=== PATIENT | female | born 1955 | race Caucasian/White ===

== ENCOUNTER 2023-12-20 11:52 | Outpatient (CLI) | payer MEDICARE, SELFPAY ==
--- NOTE | ~2023-12-20 | XR_ITS ---
EXAMINATION: XR hip LT 2V w AP pelvis INDICATION: Left hip pain TECHNIQUE: AP view the pelvis and two views of the left hip are obtained. COMPARISON: None available FINDINGS: There are changes of right hip arthroplasty. There is moderate osteoarthritis of the left h ip. There is no fracture. A lesion of the left proximal femur with smooth sclerotic margin is noted, likely benign. IMPRESSION: 1. Moderate osteoarthritis of the left hip. Reviewed, dictated and finalized at location F.
== END 2023-12-20 11:53 | disposition home or self-care (01) ==
LOC: ANHIMG 11:59
PROVIDERS: PCP Physician Assistant; Visit Provider Orthopaedic Surgery
DX: M16.12 Unilateral primary osteoarthritis, left hip (principal)
CPT/HCPCS: 73502

== ENCOUNTER 2025-05-11 13:58 | Outpatient (CLI) | payer MEDICARE, SELFPAY ==
--- NOTE | ~2025-05-11 | XR_ITS ---
XR hip LT 2V w AP pelvis 05/11/2025 14:26 Indication: Osteoarthritis of the left hip Procedure: AP pelvis and 2 views left hip Comparison: 12/20/2023 Findings: There is moderate osteoarthritis of the left without significant change from prior examinat ion. There is remodeling of the acetabulum. There is a right femoral bipolar hemiarthroplasty. Pelvic rings intact. Sacral foramen are symmetric. There is lower lumbar spondylosis partially visualized. Stable subtle sclerotic lesion aspect of the left femur, likely benign. Impression: 1: Moderate osteoarthritis left hip. Reviewed, dictated and finalized at location A. Impression: 1: Moderate osteoarthritis left hip.
--- OUTSIDE RECORDS SUMMARY | 2025-05-11 14:00 | XMS_ITS | Encounter Summary ---
Author Organization [facility] Address [address] [place] [address] Phone Care Team Providers Care Collection Clerk Name Role Phone Kaitlynn Morgan Primary Care Provider + Yonas Kendall MD Unavailable [phone] Encounter Details Date Type Department Care Team (Late st Contact Info) Description 04/11/2025 Results Follow-Up [facility] - General Surgery - [place] [address] [address] Yonas Kendall MD [address] [address] PATHOLOGY SURGICAL Social History Tobacco Use Types Packs/Day Years Used Date Smoking Tobacco: Never Smokeless Tobacco: Never Alcohol Use Standard Drinks/Week Comments No 0 (1 standard drink = 0.6 oz pur e alcohol) [facility] Utilities Answer Date Recorded In the past 12 months has e electric, gas, oil, or water company threatened to shut off services in your home? No 03/16/2024 Social Connection and Isolation Panel Answer Date Recorded In a typical week, how many times do you talk on the phone with family, friends, or neighbors? Three times a week 03/16/2024 How often do you get togethe r with friends or relatives? Twice a week 03/16/2024 How often do you attend chur ch or yazidism services? More than 4 times per year 03/16/2024 Do you belong to any clubs o r organizations such as yazidi groups, unions, fraternal or athletic groups, or school groups? Yes 03/16/2024 How often do you attend meet ings of the clubs or organizations you belong to? 1 to 4 times per year 03/16/2024 Are you , , di vorced, , never , or living with a partner? 03/16/2024 Overall Financial Resource Strain (CARDIA) Answe r Date Recorded How hard is it for you to pa y for the very basics like food, housing, medical care, and heating? Not very hard 03/16/2024 PHQ-2 Answer Date Recorded Total Score - Questions 1-9 0 10/28 [facility] - Occupational Stress Questionnaire Answer Date Recorded Do you feel stress - tense, restless, nervous, or anxious, or unable to sleep at night because your mind is troubled all the time - these days? Only a little 03/16/2024 Exercise Vital Sign Answer Date Recorde d On average, how many days pe r week do you engage in moderate to strenuous exercise (like a brisk walk)? 3 days 03/16/2024 On average, how many minutes do you engage in exercise at this level? 60 min 03/16/2024 Hunger Vital Sign Answer Date Recorded Within the past 12 months, y ou worried that your food would run out before you got the money to buy more. Never true 03/16/20 24 Within the past 12 months, t he food you bought just didn't last and you didn't have money to get more. Never true 03/16/2024 PRAPARE - Transportation Answer Date Re corded In the past 12 months, has l ack of transportation kept you from medical appointments or from getting medications? No 02/26 In the past 12 months, has l ack of transportation kept you from meetings, work, or from getting things needed for daily living? No 03/16/2024 Housing Stability Vital Sign Answer Neri e Recorded In the last 12 months, was t here a time when you were not able to pay the mortgage or rent on time? No 09/14/2023 In the last 12 months, how many places have you lived? 1 09/14/2023 In the last 12 months, was t here a time when you did not have a steady place to sleep or slept in a custodial (including now)? No 09/14/2023 Housing Stability Vital Sign Answer Neri e Recorded In the last 12 months, was t here a time when you were not able to pay the mortgage or rent on time? No 03/16/2024 Number of Times Moved in the Last Year Not on fi le 03/16/2024 At any time in the past 12 m [facility], were you homeless or living in a custodial (including now)? No 03/16/2024 AUDIT-C Answer Date Recorded Q1: How often do you have a drink containing alcohol? Never 04/09/2025 Q2: How many drinks containi ng alcohol do you have on a typical day when you are drinking? Patient does not drink Q3: How often do you have si x or more drinks on one occasion? 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 on file documented as of this encounter Plan of Treatment Not on file documented as of this encounter Visit Diagnoses Not on filedocumented in this encounter Additional Health Concerns Assessment Noted Time PHQ-9 Depression Total Score: 0 11/06/19 25 9:25 AM INCIDENT HANDLER documented as of this encounter Care Teams Collection Clerk Relationship Specialty Start Date End Date Kaitlynn Morgan PAC [address] [place] [address] PCP - General Physician Quality Assurance Coordinator 12/01/17 Yonas Kendall MD [id number] [phone] Consulting Physician General Surgery 07/10/22 documented as of this encounter
--- OUTSIDE RECORDS SUMMARY | 2025-05-11 14:00 | XMS_ITS | Encounter Summary ---
Author Organization [facility] Address [address] [place] [address] Phone Care Team Providers Care Aircraft Structural Repair Mechanic Name Role Phone Kaitlynn Morgan Primary Care Provider + Yonas Kendall MD Unavailable [phone] Reason for Visit * Reason Comments Medication Refill Encounter Details Date Type Department Care Team (Late st Contact Info) Description 03/01/2024 Refill [facility] [address] [place] [address] Kaitlynn Morgan PAC [address] [place] [address] Medication Refill Social History Tobacco Use Types Packs/Day Years Used Date Smoking Tobacco: Never Smokeless Tobacco: Never Alcohol Use Standard Drinks/Week Comments No 0 (1 standard drink = 0.6 oz pur e alcohol) [facility] Utilities Answer Date Recorded In the past 12 months has e electric, gas, oil, or water company threatened to shut off services in your home? No 09/14/2023 Social Connection and Isolation Panel Answer Date Recorded In a typical week, how many times do you talk on the phone with family, friends, or neighbors? Once a week 09/14/2023 How often do you get togethe r with friends or relatives? Once a week 09/14/2023 How often do you attend chur or sikh services? More than 4 times per year 09/14/2023 Do you belong to any clubs o r organizations such as hinduism groups, unions, fraternal or athletic groups, or school groups? Yes 09/14/2023 How often do you attend meet ings of the clubs or organizations you belong to? More than 4 times per year 09/14/2023 Are you , , di vorced, , never , or living with a partner? 09/14/2023 AUDIT-C Answer Date Recorded Q1: How often do you have a drink containing alcohol? Never 09/14/2023 Q2: How many drinks containi ng alcohol do you have on a typical day when you are drinking? Patient does not drink Q3: How often do you have si x or more drinks on one occasion? Never 09/14/2023 Overall Financial Resource Strain (CARDIA) Answe r Date Recorded How hard is it for you to pa y for the very basics like food, housing, medical care, and heating? Not hard at all 09/14/2023 PHQ-2 Answer Date Recorded Total Score - Questions 1-9 0 04/0 02/2022 [facility]ational Stress Questionnaire Answer Date Recorded Do you feel stress - tense, restless, nervous, or anxious, or unable to sleep at night because your mind is troubled all the time - these days? Only a little 09/14/2023 Exercise Vital Sign Answer Date Recorde d On average, how many days pe r week do you engage in moderate to strenuous exercise (like a brisk walk)? 3 days 09/14/2023 On average, how many minutes do you engage in exercise at this level? 60 min 09/14/2023 Hunger Vital Sign Answer Date Recorded Within the past 12 months, y ou worried that your food would run out before you got the money to buy more. Never true 09/14/20 23 Within the past 12 months, t he food you bought just didn't last and you didn't have money to get more. Never true 09/14/2023 PRAPARE - Transportation Answer Date Re corded In the past 12 months, has l ack of transportation kept you from medical appointments or from getting medications? No 08/27 In the past 12 months, has l ack of transportation kept you from meetings, work, or from getting things needed for daily living? No 09/14/2023 Housing Stability Vital Sign Answer [...] place to sleep or slept in a care home (including now)? 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 Requested Prescriptions Pending Prescriptions Disp Refills famotidine (PEPCID) 20 MG Tablet [Pharmacy Med Name: FAMOTIDINE 20 MG TABLET] 180 Tablet 1 Sig: TAKE 1 TABLET BY MOUTH TWICE A DAY H2 Antagonists Protocol Passed - 03/01/2024 12:29 AM Passed - Visit with relevant provider in past 12 months or upcoming 90 days Recent Visits Date Type Provider Dept 09/14/23 Office Visit Kaitlynn Morgan PAC [facility] 03/04/23 Office Visit Kaitlynn Morgan PAC [facility] Showing recent visits within past 365 days and meeting all other requirements Future Appointments Date Type Provider Dept 03/16/24 Appointment Kaitlynn Morgan PAC [facility] Showing future appointments within next 90 days and meeting all other requirements documented in this encounter Plan of Treatment Not on file documented as of this encounter Visit Diagnoses Not on filedocumented in this encounter Additional Health Concerns Assessment Noted Time PHQ-9 Depression Total Score: 0 11/26/19 21 8:36 AM ALLIANCE DIRECTOR documented as of this encounter Care Teams Aircraft Structural Repair Mechanic Relationship Specialty Start Date End Date Kaitlynn Morgan PAC [address] [place] [address] PCP - General Physician Drop Count Associate 12/01/17 Yonas Kendall MD #[address] [place] [address] [phone] Consulting Physician General Surgery 07/10/22 documented as of this encounter
--- OUTSIDE RECORDS SUMMARY | 2025-05-11 14:00 | XMS_ITS | Encounter Summary ---
Author Organization [facility] Address [address] [place] [address] Phone Care Team Providers Care Medical Billing Instructor Name Role Phone Kaitlynn Morgan Primary Care Provider + Yonas Kendall MD Unavailable Reason for Visit * Reason Comments Medication Refill Encounter Details Date Type Department Care Team (Late st Contact Info) Description 11/25/2021 Refill [facility] - Family Medicine [facility] [address] [place] [address] Kaitlynn Morgan, PAC [address] [place] [address] Medication Refill Social History Tobacco Use Types Packs/Day Years Used Date Smoking Tobacco: Never Smokeless Tobacco: Never Alcohol Use Standard Drinks/Week Comments No 0 (1 standard drink = 0.6 oz pur e alcohol) PHQ-2 Answer Date Recorded Total Score - Questions 1-9 0 03/09/2020 Comments No Sex and Gender Information Value Date Recorded Sex Assigned at Female 09/28/2023 1:43 PM DIE GRINDER Legal Sex Female 9:47 PM CDT Gender Identity Female 09/28/2023 1:43 PM DIE GRINDER Sexual Orientation Straight 09/28/2023 1: 43 PM DIE GRINDER 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 Requested Prescriptions Pending Prescriptions Disp Refills lisinopril (PRINIVIL, ZESTRIL) 20 MG Tablet [Pharmacy Med Name: LISINOPRIL 20 MG TABLET] 90 Tablet 1 Sig: TAKE 1 TABLET BY MOUTH EVERY DAY KERLINE Inhibitors Protocol Failed - 11/25/2021 12:19 AM Failed - Serum potassium on record in past 12 months POTASSIUM Date Value Ref Range Status 05/21/2020 4.5 3.5 - 5.1 mmol/L Final Failed - GFR on record in past 12 months GFR, EST. NONAFRICAN Date Value Ref Range Status 05/21/2020 >60 >=60 Final Passed - Blood pressure on record in past 12 months Clinician-entered: BP Readings from Last 3 Encounters: 09/03/21 142/71 07/02/21 128/78 06/11/21 180/86 Patient-entered: No data recorded Passed - Visit with relevant provider in past 12 months or upcoming 90 days Recent Visits Date Type Provider Dept 07/02/21 Office Visit Kaitlynn Morgan PAC [facility] 06/11/21 Office Visit Kaitlynn Morgan PAC [facility] 05/29/21 Office Visit Kaitlynn Morgan, PAC [facility] 03/25/21 Office Visit Kaitlynn Morgan, PAC [facility] 11/25/20 Office Visit Kaitlynn Morgan PAC [facility] Showing recent visits within past 365 days and meeting all other requirements Future Appointments Date Type Provider Dept 12/31/21 Appointment Kaitlynn Morgan PAC [facility] Showing future appointments within next 90 days and meeting all other requirements GRINDER documented in this encounter Plan of Treatment Not on file documented as of this encounter Visit Diagnoses Not on filedocumented in this encounter Additional Health Concerns Assessment Noted Time PHQ-9 Depression Total Score: 0 11/26/19 21 8:36 AM DIE GRINDER documented as of this encounter Care Teams Medical Billing Instructor Relationship Specialty Start Date End Date Kaitlynn Morgan PAC [address] [place] [address] PCP - General Physician Park Services Specialist 12/01/17 Yonas Kendall MD [address] [phone] Consulting Physician General Surgery 07/10/22 documented as of this encounter
--- OUTSIDE RECORDS SUMMARY | 2025-05-11 14:00 | XMS_ITS | Clinical Summary ---
Author Organization [facility] Address [address] [facility] [address] [place] [address] Phone Care Team Providers Care Automotive Quality Manager Name Role Phone Kaitlynn Morgan Primary Care Provider + Yonas Kendall MD Unavailable Allergies Active Allergy Reactions Criticality Noted Date Comments Sulfa Antibiotics Hives,Rash Medications Calcium Carb-Cholecalci ferol (CALCIUM 600 + D PO) Take 1 Tab by mouth daily. Active Multiple Vitamins-Minera ls (MULTIVITAMIN PO) Take 1 Tab by mouth daily. Active Cholecalciferol (VITAMIN D3) 1000 UNIT Tablet Take 1 Tab by mouth daily. Active BIOTIN PO Take 3,000 mcg by mouth daily. Active cycloSPORINE (RESTASIS) 0.05 % Emulsion Place 1 Drop in affected eye(s) 2 times daily. Active Specialty Vitamins Products (VITAMINS FOR HAIR PO) Take 1 Tab by mouth daily. Active Probiotic Product (MONTEJO COLON HEALTH PO) Take by mouth daily. Active Semaglutide, 2 MG/DOSE, (Ozempic, 2 MG/DOSE,) 8 MG/3ML Solution Pen-injector 2 mg by Subcutaneous route every 7 days. 9 mL 3 3 Active famotidine (PEPCID) 20 MG Tablet TAKE 1 TABLET BY MOUTH TWICE A DAY 180 Tablet 1 4 Active atorvastatin (LIPITOR) 10 MG Tablet TAKE 1 TABLET BY MOUTH EVERY DAY 90 Tablet 2 5 Active lisinopril (PRINIVIL, ZESTRIL) 10 MG TabletIndicatio ns:Hypertension , unspecified type Take 1 Tablet by mouth daily. 90 Tablet 3 5 Active Active Problems Problem Noted Date Diagnosed Date Screen for colon cancer 06/23/2021 Iron deficiency 02/21/2021 Other abnormality of red blood cells 02/20/2021 Low back pain without sciatica 12/01/2017 Dyslipidemia 12/01/2017 Leukopenia Overview (08/27/2015): Transient leukopenia. Most recent CBC shows that WBC has recovered to normal. Normal iron panel, B12, folate, negative HIV and hepatitis B/C Encounters Date Type Department Care Team Description 04/17/2025 Telephone [facility] General Surgery - [place] [address] [facility] [address] [place] [address] Yonas Kendall MD 04/11/2025 Results Follow-Up [facility] General Surgery - [place] [address] [place] [address] Yonas Kendall MD PATHOLOGY SURGICAL 04/09/2025 1:30 PM CDT Office Visit [facility] General Surgery - [place] [address] [facility] [address] [place] [address] Kaitlynn Morgan PAC Sanz, Alejandro Federico, MD Soft tissue mass (Primary Dx) Discharge Disposition: Discharged to home or Selfcare 04/09/2025 Travel 03/16/2025 2:30 PM CDT Office Visit [facility] Family Medicine [facility] [address] [facility] [place] [address] Kaitlynn Morgan PAC Hypertension, unspecified type (Primary Dx); Orthostatic hypotension; Soft tissue mass Discharge Disposition: Discharged to home or Selfcare 03/16/2025 Travel from Last 3 Months Immunizations Immunization Administration Dates Next Due Covid-19, Mrna, Lnp-s, Pf, 3 0 Mcg/0.3 Ml Dose (Freshmilk NetTV) 11/20/2020,10/30/2020 Influenza Vaccine greater than 3 yrs 05/13/2020, 06/27/2018 Influenza Vaccine, Quadrivalent, PF 06/28/2017,0 05/27/2016,07/08/2015 Influenza Vaccine,unspecifie d Formulation 06/16/2023 Influenza, High-dose, Quadrivalent 05/24/2022, Influenza, Quadrivalent, Adjuvanted 06/16/2023 Influenza, Seasonal, Injecta ble, Undefined 06/27/2018,07/17/2014,06/24/2013,2011 Influenza, high-dose, trivalent, PF 07/05/2024,0 05/13/2020,06/21/2019 PUR FLU 3+ YRS PRES FREE QUAD IM 05/27/2016 Pneumococcal Vaccine - 13 Valent 12/08/2018 Pneumococcal Vaccine Adult - 23 Valent 06/13/2020 RSV, Recombinant, Protein Gordon bunit Rsvpref, Adjuvant Recon (Arexvy) 07/01/2023 TD VACCINE 05/02/2013 TDAP Vaccine 12/12/2024,11/26/2014 Zoster Vaccine Recombinant 04/10/2019,02/09/2019 Family History Medical History Relation Name Comments No Known Problems Brother 1 Cancer Brother 2 Vivek Prostate cancer Other-comment Brother 2 Vivek kidney stones No Known Problems Brother 4 Diabetes Brother 5 Poli Belénjuliusbelinda Cancer Brother 6 Vivek Belénjuliuslexbriana Diabetes Brother 6 Vivek Belénjuliuslexbriana Hypertension Father Sami Mckeon Other-comment Father Sami Mckeon SEPSIS Stroke Father Sami Mckeon Stroke Half-Brother 1 Cancer Maternal Aunt Kindra Ibanez Other-comment Mother MVA Cancer Paternal Aunt Tamie Mckeon Stroke Sister 1 Cancer Sister 2 Colon cancer Arthritis Sister 3 Other-comment Sister 3 aortic stenosi s Cancer Sister 4 Butch Witt Rheumatoid Arthritis Sister 4 Butch Witt Rheumatoid Arthritis Sister 5 Candy Her Relation Name Status Comments Brother 1 Alive Brother 2 Vivek Alive Brother 3 Poli Alive Brother 4 Alive Brother 5 Poli Mckeon Alive Brother 6 Vivek Mckeon Alive Father Sami Mckeon Alive Half-Brother 1 Half-Brother 2 Alive Maternal Aunt Kindra Ibanez Alive Mother Paternal Aunt Tamie Mckeon Alive Sister 1 Alive Sister 2 Alive Sister 3 Alive Sister 4 Butch Witt Alive Sister 5 Candy Her Alive Social History Tobacco Use Types Packs/Day Years Used Date Smoking Tobacco: Never Smokeless Tobacco: Never Tobacco Cessation:Counseling Given: Not Answered Alcohol Use Standard Drinks/Week Comments No 0 (1 standard drink = 0.6 oz pur e alcohol) [facility] Utilities Answer Date Recorded In the past [...] often do you attend chur ch or jew services? More than 4 times per year 03/16/2024 Do you belong to any clubs o r organizations such as holiness groups, unions, fraternal or athletic groups, or [...] Total Score - Questions 1-9 0 10/28 [facility] of Occupat ional Health - Occupational Stress Questionnaire Answer Date [...] place to sleep or slept in a alf (including now)? No 09/14/2023 Housing Stability Vital Sign Answer Neri e Recorded In the last 12 months, was t here a time when you were not able to pay the mortgage or rent on time? No 03/16/2024 Number of Times Moved in the Last Year Not on fi le 03/16/2024 At any time in the past 12 m [facility], were you homeless or living in a alf (including now)? No 03/16/2024 AUDIT-C Answer Date [...] Sex Assigned at Female 09/28/2023 1:43 PM [employer]ELOPER [employer] Legal Sex Female 9:47 PM CDT Gender Identity Female 09/28/2023 1:43 PM [employer]ELOPER [employer] Sexual Orientation Straight 09/28/2023 1: 43 PM [employer] Occupation Industry Job Start Date Job End Date retired teacher Not on file Not on file Not on file Last Filed Vital Signs Vital Sign Reading Time Taken Comments Blood Pressure 138/74 04/09/2025 1:27 PM CDT Pulse 75 04/09/2025 1:27 PM CDT Temperature 36.2 C (97.2 F) 04/09/2025 1:27 PM CDT Respiratory Rate 16 03/16/2025 2:00 PM CDT Oxygen Saturation 97% 04/09/2025 1:27 PM CDT Inhaled Oxygen Concentration - - Weight 73.5 kg (162 lb) 04/09/2025 1:27 PM CDT Height 160 cm (5' 3) 04/09/2025 1:27 PM CDT Body Mass Index 28.7 04/09/2025 1:27 PM CDT Plan of Treatment Health Maintenance Due Date Last Done Comments Cologkathryn 1998 Immunochemical Fecal Occult Blood 1998 SARS-COV-2 Immunization ( season) 2025 07/05/2024, 07/01/2023, 06/25/2022, Additional history exists Influenza Immunization (#1) 05/28/202505/2024, 06/16/2023, 06/16/2023, Additional history exists Mammogram 10/05/2025 10/05/2024, 05/2025, 08/17/2023, Additional history exists Colonoscopy 09/03/2026 09/03/2021, 06/22/2016 Colorectal Cancer Screening 09/03/2026 DEXA Bone Density 12/14/2026 12/14/2022, 12/13/2018 Td Immunization Every 10 Years (Adults With 1 Tdap) 12/12/2034 12/12/2024, 11/26/2014, 05/02/2013 Zoster Immunization Completed 04/17/2019, 04/10/2019, 02/09/2019 Pneumococcal Immunization (50+ years) Completed 06/13/2020, 12/08/2018 Pneumococcal Immunization Combined Discontinued 06/13/2020, 12/08/2018 Hepatitis C Virus (HCV) Screening Completed 03/05/2023 Respiratory Syncytial Virus (RSV) Immunization (Adult) Completed 07/01/2023 Hepatitis B Immunization Aged Out No longer eligible based on patient's age to complete this topic Human Papillomavirus (HPV) Immunization Aged Out No longer eligible based on patient's age to complete this topic Meningococcal Immunization (ACWY) Aged Out No longer eligible based on patient's age to complete this topic Rotavirus Immunization Aged Out No lo nger eligible based on patient's age to complete this topic Procedures Procedure Name Priority Date/Time Associated Diagnosis Comments PATHOLOGY SURGICAL Routine 04/09/2025 1: 57 PM CDT Soft tissue mass EXC SKIN BENIG 1.1-2CM REMAINDR BODY Routine 04/09/2025 1:30 PM CDT Soft tissue mass MAMMOGRAM BILATERAL GENERIC 10/05/2024 12:00 AM DEVELOPER [employer] HEPATITIS C ANTIBODY Routine 03/05/2023 9:21 AM CDT Need for hepatitis C screening test TJ BONE DENSITOMETRY AXIAL SKELETON Routine 12/14/2022 2:20 PM CDT Post-menopausal from Last 3 Months or Most Recently Relevant to Health Maintenance Results * PATHOLOGY SURGICAL (04/09/2025 1:57 PM CDT) Case Report Surgical Pathology Report Case: [id number] Authorizing Provider: Yonas Kendall, Collected: 04/09/2025 01:57 PM Ordering Location: [facility] - Received: 04/09/2025 01:57 PM General Surgery [facility] Pathologist: Madison Perez MD PhD Specimen: Skin, soft tissue mass, neck 04/11/2025 9:23 AM CDT [facility] FINAL DIAGNOSIS Soft tissue, neck, mass, excision: - Benign epidermoid cyst 04/11/2025 9:23 AM CDT [facility] at 0922 CDT Pre-Operative Diagnosis Soft tissue mass, neck 04/11/2025 9:23 AM CDT [facility] Gross Description A. soft tissue mass, neck The specimen presents in 1 formalin container for gross and microscopic examination labeled with the patient's name, Wendy Sanders. The specimen is designated as soft tissue mass neck excision and consists of a barber-pink skin ellipse measuring 1.7 x 1.3 x 1.0 cm. The surgical margin is inked black. Serial sectioning of the specimen reveals an barber-white firm ovoid nodule measuring 0.8 cm in greatest diameter. The specimen is entirely submitted in cassette A1. Total time of formalin fixation: 31 hours and 54 minutes. 04/11/2025 9:23 AM CDT [facility] Microscopic Description Microscopic examination was performed which supports the final diagnosis. All control tissues stained appropriately. 04/11/2025 9:23 AM CDT [facility] Other SPECIMEN FROM SKIN / Unknown Non-Phlebotomy Collection / Unknown 04/09/2025 1:57 PM CDT 04/09/2025 1:57 PM CDT us Yonas Kendall MD PATHOLOGY/CYTOLOGY OR DERABLES Final Result [facility] [address] [place] [address] * EXC SKIN BENIG 1.1-2CM REMAINDR BODY (04/09/2025 1:30 PM CDT) Narrative Yonas Kendall MD - 04/09/2025 1:30 PM CDT Yonas Kendall MD 04/09/2025 1:58 PM Procedure Excisional biopsy skin lesion, posterior neck mass Anesthesia Local, mixture 0.25% bupivacaine and 1% lidocaine 10 cc total Risks, benefits and alternatives of the procedure were discussed with the patient The area of interest was prepped and draped in a sterile fashion Local anesthetic was infiltrated around the skin lesion Using knife, an incision was done through the skin down to the level of the subcutaneous tissue with at least 2 mm margin of healthy skin The rest of the dissection was completed sharply using knife and scissors The specimen was removed and was taken to pathology for analysis The specimen measure 2 cm in length and 1 cm in width The wound was reapproximated with interrupted 4 Monocryl suture Steri-Strips and Tegaderm applied Blood loss 2 cc My office will communicate with the patient regarding pathology results The patient will follow up with me as needed By: Yonas Kendall MD; 04/09/2025, 1:54 PM CDT us Yonas Kendall MD PROCEDURE/MINOR SURGI RAJEEV ORDERABLES Final Result * MAMMOGRAM BILATERAL GENERIC (10/05/2024 12:00 AM DEVELOPER EVANGELIST) 10/05/2024 us Provider Scan IMG MAMMO ORDERABLES Final Resul t SCAN * HEPATITIS C ANTIBODY (03/05/2023 9:21 AM CDT) hepatitis C antibody 0.05 <1 S/[facility] [id number] B 03/05/2023 10:44 PM CDT [facility] Comment: Signal/Cutoff ratio < 0.79 is Nondetected Signal/Cutoff ratio 0.80-0.99 is Grayzone Signal/Cutoff ratio > 0.99 is Detected Supplemental assays are recommended if signal/cutoff ratio is >/=1.00. Signal/cutoff ratio result >/= 5.00 is 97% predictive of positivity for recombinant immunoblot assay (RIBA) and will be reported to the [place] Department of Public Health as required. Blood Venipuncture / Unknown 03/05/2023 9:21 AM CDT 03/05/2023 9:53 AM CDT us Kaitlynn Morgan PAC CHEMISTRY ORDERABLES Fin al Result [facility] [address] [place] [address], [place] * TJ BONE DENSITOMETRY AXIAL SKELETON (12/14/2022 2:20 PM CDT) Anatomical Region Laterality Modality BODY N/A Computed Radiogr aphy 12/14/2022 3:01 PM CDT Impressions 12/14/2022 3:04 PM CDT IMPRESSION: Normal bone density. REFERENCE: Bone mineral density: Normal (T-score above or = -1.0) Low bone mass (T-score between -1.0 and -2.5) replaces the previously used term osteopenia Osteoporosis (T-score = or below -2.5) Medical evaluation for secondary causes of low bone mineral density may be appropriate. FRAX is a World Health Organization validated fracture risk assessment tool that calculates a person's 10 year probability of a major osteoporosis related fracture and hip fracture. According to the National Osteoporosis Foundation guidelines, postmenopausal women and men age 50 or older with low bone mass and a 10 year probability of a major osteoporosis related fracture = or greater than 20% or a 10 year probability of a hip fracture = or greater than 3% should be considered for treatment. For further information, including treatment recommendations, please refer to the 2013 ISCD Official Positions (http://www.iscd.org) and the NOF's Clinician's Guide to Prevention and Treatment of Osteoporosis (http://www.nof.org/professionals/clinical-guidelines) Narrative 12/14/2022 3:04 PM CDT EXAM DESCRIPTION: TJ BONE DENSITOMETRY AXIAL SKELETON REASON FOR STUDY: 67 y/o year old F with given history of screening. Pharmacy Order Entry Technician/Model: [employer] (S/N [id number]) CLINICAL INFORMATION: Current height: 5 foot 2 inches Maximum height: 5 foot 3 inches Weight: 186 pounds Risk factors: None COMPARISON: 12/13/2018, 12/02/2013 FINDINGS: AP LUMBAR SPINE L1-L4: Total BMD is 1.138 g/cm2 T-score is -0.5 Most recent prior BMD was 1.126 g/cm2 There has been a 1.1% change in BMD which is not statistically significant. LEFT HIP: Current Total BMD is 0.920 g/cm2 T-score is -0.7 Most recent prior Total BMD was 0.951 g/cm2 There has been a -3.3% change in BMD which is not statistically significant. Current femoral neck BMD is 0.998 g/cm2 T-score is -0.3 FRAX: 10 year risk for a major osteoporotic fracture is 6.9 %, 10 year risk for a hip fracture is 0.4 % THIS IS AN ELECTRONICALLY VERIFIED FINAL REPORT 12/14/2022 3:01 PM - Electronically signed by Kj Cantu M.D. AG: ADELITA Report ID: [id number] Reading Location: [place] [address] Procedure Note Kj Cantu MD - 12/14/2022 EXAM DESCRIPTION: [facility] BONE DENSITOMETRY AXIAL SKELETON REASON FOR STUDY: 67 y/o year old F with given history of screening. Pharmacy Order Entry Technician/Model: [employer] (S/N [id number]) CLINICAL INFORMATION: Current height: 5 foot 2 inches Maximum height: 5 foot 3 inches Weight: 186 pounds Risk factors: None COMPARISON: 12/13/2018, 12/02/2013 FINDINGS: AP LUMBAR SPINE L1-L4: Total BMD is 1.138 g/cm2 T-score is -0.5 Most recent prior BMD was 1.126 g/cm2 There has been a 1.1% change in BMD which is not statistically significant. LEFT HIP: Current Total BMD is 0.920 g/cm2 T-score is -0.7 Most recent prior Total BMD was 0.951 g/cm2 There has been a -3.3% change in BMD which is not statistically significant. Current femoral neck BMD is 0.998 g/cm2 T-score is -0.3 FRAX: 10 year risk for a major osteoporotic fracture is 6.9 %, 10 year risk for a hip fracture is 0.4 % THIS IS AN ELECTRONICALLY VERIFIED FINAL REPORT 12/14/2022 3:01 PM - Electronically signed by Kj Cantu M.D. AG: [employer]DELITA Report ID: [id number] Reading Location: [id number] IMPRESSION: Normal bone density. REFERENCE: Bone mineral density: Normal (T-score above or = -1.0) Low bone mass (T-score between -1.0 and -2.5) replaces the previously used term osteopenia Osteoporosis (T-score = or below -2.5) Medical evaluation for secondary causes of low bone mineral density may be appropriate. FRAX is a World Health Organization validated fracture risk assessment tool that calculates a person's 10 year probability of a major osteoporosis related fracture and hip fracture. According to the National Osteoporosis Foundation guidelines, postmenopausal women and men age 50 or older with low bone mass and a 10 year probability of a major osteoporosis related fracture = or greater than 20% or a 10 year probability of a hip fracture = or greater than 3% should be considered for treatment. For further information, including treatment recommendations, please refer to the 2013 ISCD Official Positions (http://www.iscd.org) and the NOF's Clinician's Guide to Prevention and Treatment of Osteoporosis (http://www.nof.org/professionals/clinical-guidelines) Kaitlynn ROMERO IMG DEXA ORDERABLES Heidi l Result from Last 3 Months or Most Recently Relevant to Health Maintenance Insurance MEDICARE C [facility] Care Teams Automotive Quality Manager Relationship Specialty Start Date End Date Kaitlynn Morgan PAC [address] [place] [address] PCP - General Physician Drum Sander 12/01/17 Yonas Kendall MD [address] [address] Consulting Physician General Surgery 07/10/22
--- OUTSIDE RECORDS SUMMARY | 2025-05-11 14:00 | XMS_ITS | Clinical Summary ---
Author Organization [facility] Address [address] [place] [address] Care Team Providers Care Senior Fire Protection Engineer Name Role Phone Kaitlynn Morgan Primary Care Provider [phone] Allergies Active Allergy Reactions Criticality Noted Date Comments Sulfa (Sulfonamide Antibiotics) Hives,Rash Medium 10/28 Sulfanilamide Medications atorvastatin (LIPITOR) 10 mg tablet take 1 tablet by oral route every day 0 0 4 Active biotin 300 mcg tablet takes tid 0 0 4 Active Additional Information Patient taking differently: 5,000 mcg, Reported on 11/13/2022 ferrous sulfate (IRON) 325 mg (65 mg iron) capsule, extended release takes one daily 0 0 4 Active Additional Information Patient not taking.Reported on 11/13/2022 s-adenosylmethi onine (HARRISON-E) 400 mg tablet once a day 0 0 4 Active Additional Information Patient not taking.Reported on 11/13/2022 cycloSPORINE (RESTASIS) 0.05 % ophthalmic emulsion instill 1 drop by ophthalmic route every 12 hours into affected eye(s) 0 0 5 Active calcium carbonate-vitam in D3 (CALCIUM 600 + D,3,) 600 mg calcium- 200 unit capsule takes one tablet daily 0 0 5 Active cholecalciferol (VITAMIN D3) 2,000 unit capsule 1000 iu one tablet po qd 0 5 Active multivitamin tablet tablet take 1 tablet by oral route every day with food 0 1 Active omeprazole (PriLOSEC) 40 mg capsule take 1 capsule by oral route every day before a meal 0 0 7 Active lisinopriL (PRINIVIL,ZESTR IL) 20 mg tablet Take 1 tablet by mouth daily 2 Active Active Problems Problem Noted Date Diagnosed Date Adiposity 12/03/2014 Overview (01/01/2017): Obesity Hypercholesterolemia 10/17/2012 Overview (12/31/2016): Hypercholesterolemia Surgical History Surgery Date Site/Laterality Comments OTHER SURGICAL HISTORY Knee surgery 1975 & 1990 CARPAL TUNNEL RELEASE 09/27/2004 - 09/26/2005 Carpal tunnel OTHER SURGICAL HISTORY 09/27/2011 - 09/26/2012 osteoarthritis: knee replacement, Left Medical History Medical History Date Comments Osteoarthritis osteoarthritis; Outcome: improved Hyperlipidemia Hyperlipidemia Family History Medical History Relation Name Comments Diabetes Brother Diabetes mellit us; Other Father Old age; Cause of : Old age Car Accident Mother Car accident; C ause of : Car accident Colon cancer Sister Breast cancer Neg Hx Ovarian cancer Neg Hx Thyroid cancer Neg Hx Relation Name Status Comments Brother Father Alive Mother Sister Social History Tobacco Use Types Packs/Day Years Used Date Smoking Tobacco: Never Smokeless Tobacco: Never Tobacco Cessation:Counseling Given: Not Answered Alcohol Use Standard Drinks/Week Comments Yes 0 (1 standard drink = 0.6 oz pur e alcohol) Comments No Sex and Gender Information Value Date Recorded Sex Assigned at Not on file Legal Sex Female 6:21 PM AUDIO PRODUCTION ENGINEER Gender Identity Not on file Sexual Orientation Not on file Occupation Industry Job Start Date Job End Date Retired Not on file Not on file Not on file Obstetrics History Para Term AB IAB SAB Ectopic Multiple Livin g Live Births 0 0 0 0 0 0 0 0 0 0 0 Last Filed Vital Signs Vital Sign Reading Time Taken Comments Blood Pressure 132/78 11/13/2022 2:13 PM AUDIO PRODUCTION ENGINEER Pulse 60 10/17/2012 9:15 AM AUDIO PRODUCTION ENGINEER Temperature - - Respiratory Rate - - Oxygen Saturation - - Inhaled Oxygen Concentration - - Weight 89.1 kg (196 lb 6.4 oz) 11/13/2022 2:13 P M AUDIO PRODUCTION ENGINEER Height 160 cm (5' 3) 10/05/2024 4:04 PM AUDIO PRODUCTION ENGINEER Body Mass Index 36.51 11/13/2022 2:13 PM AUDIO PRODUCTION ENGINEER Plan of Treatment Health Maintenance Due Date Last Done Comments Colon Cancer Screening-Colonoscopy 1955 Depression Screening 1955 Fall Risk Assessment 1955 Hepatitis C Screening 1955 Hepatitis B Screening 1971 Well Visit 65+ 11/13/2023 11/13/2022, 04/0 09/2018, 12/23/2017 Covid-19 Vaccine (3 - 2023-2 5 season) 2024 11/20/2020, 10/30/2020 DTaP/Tdap/Td Vaccine (2 - Td or Tdap) 11/26/2024 11/26/2014, 05/02/2013 Osteoporosis Screening-Bone Density Scan 12/14/2024 12/14/2022, 12/14/2022, 12/13/2018, Additional history exists Influenza Vaccine (#1) 2025 , 06/16/2023, 05/13/2020, Additional history exists Breast Cancer Screening-Mammogram 10/05/2025 10/05/2024, 08/17/2023, 08/12/2022, Additional history exists Zoster Vaccine Completed 04/10/2019, 02/09/2019 Pneumococcal vaccine 65+ Completed 06/13/2020, 11/25 Procedures Procedure Name Priority Date/Time Associated Diagnosis Comments SCREENING MAMMOGRAM BILATERAL W RICCO Schedule Routine, Read Routine (OP Routine) 10/05/2024 4:05 PM AUDIO PRODUCTION ENGINEER Screening mammogram, encounter for from Last 3 Months or Most Recently Relevant to Health Maintenance Results * Screening Mammogram Bilateral W Ricco (10/05/2024 4:05 PM AUDIO PRODUCTION ENGINEER) Anatomical Region Laterality Modality Breast Bilateral Mammography 10/05/2024 5:02 PM AUDIO PRODUCTION ENGINEER Impressions 10/05/2024 5:02 PM AUDIO PRODUCTION ENGINEER There is no mammographic evidence of malignancy. A 1 year screening mammogram is recommended. BI-RADS: 1 - Negative. The patient has been or will be contacted. The patient will be entered into a reminder system with a target due date of 1 year for her next mammogram. Electronically signed by: Magen Garay M.D. Narrative 10/05/2024 5:02 PM AUDIO PRODUCTION ENGINEER EXAMINATION: SCREENING MAMMOGRAM BILATERAL W RICCO ORDERING HEALTHCARE PROVIDER: SELF SCREENING MAMMOGRAM HISTORY: Routine screening mammography. COMPARISON: 08/17/2023,01/04/2023, 08/12/2022, 07/15/2021, 07/10/2020, 01/05/2019, 01/04/2018 TECHNIQUE: CC and MLO views of the bilateral breasts were obtained with digital technique using breast tomosynthesis with C view. Computer aided detection was utilized. FINDINGS: DENSITY: There are scattered areas of fibroglandular density. BREASTS: There are no suspicious masses, suspicious calcifications, or other suspicious findings in either breast. There has been no suspicious interval change. us Self Screening Mammogram IMG MAMMO PROCEDURES Fi nal Result from Last 3 Months or Most Recently Relevant to Health Maintenance Insurance [facility] CHOICE PLUS [facility] HMO/PPO Address: [facility] [address] [place] [address] [facility] MEDICARE [facility] MEDICARE Address: [address] [address] [place] [address] [facility] MEDICARE [facility] MEDICARE Address: [address] [address] [place] [address] Care Teams Senior Fire Protection Engineer Relationship Specialty Start Date End Date Kaitlynn Morgan PA [address] [place] [address] PCP - General 01/05/19
--- OUTSIDE RECORDS SUMMARY | 2025-05-11 14:00 | XMS_ITS | Encounter Summary ---
Author Organization [facility] Address [address] [place] [address] Phone Care Team Providers Care Non Ferrous Material Handler Name Role Phone Kaitlynn Morgan Primary Care Provider + Yonas Kendall MD Unavailable Reason for Visit * Reason Comments Medication Refill Encounter Details Date Type Department Care Team (Late st Contact Info) Description 02/13/2023 Refill [facility] - Family Medicine [facility] [address] [place] [address] Kaitlynn Morgan, PAC [address] [place] [address] Medication Refill Social History Tobacco Use Types Packs/Day Years Used Date Smoking Tobacco: Never Smokeless Tobacco: Never Alcohol Use Standard Drinks/Week Comments No 0 (1 standard drink = 0.6 oz pur e alcohol) PHQ-2 Answer Date Recorded Total Score - Questions 1-9 0 04/0 02/2022 Comments No Sex and Gender Information Value Date Recorded Sex Assigned at Female 09/28/2023 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 Legal Sex Female 9:47 PM CDT Gender Identity Female 09/28/2023 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 Sexual Orientation Straight 09/28/2023 1: 43 PM RAIL PROJECT ENGINEER 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 documented in this encounter Plan of Treatment Not on file documented as of this encounter Visit Diagnoses Not on filedocumented in this encounter Additional Health Concerns Assessment Noted Time PHQ-9 Depression Total Score: 0 11/26/19 21 8:36 AM RAIL PROJECT ENGINEER documented as of this encounter Care Teams Non Ferrous Material Handler Relationship Specialty Start Date End Date Kaitlynn Morgan PAC [address] [place] [address] PCP - General Physician Doll Repairer 12/01/17 Yonas Kendall MD [id number] [phone] Consulting Physician General Surgery 07/10/22 documented as of this encounter
== END 2025-05-11 13:59 | disposition home or self-care (01) ==
PROVIDERS: PCP Physician Assistant; Visit Provider Orthopaedic Surgery
DX: M16.12 Unilateral primary osteoarthritis, left hip (principal)
CPT/HCPCS: 73502